=== PATIENT | female | born 1935 | race Caucasian/White ===

== ENCOUNTER 2017-01-06 14:19 | Emergency (ER) | payer OTHER ==
[~2017-01-06] VITALS: Ht 149.9 cm; Wt 44.0 kg
[2017-01-06 14:48] VITALS: BP_SYST 120
--- NOTE | 2017-01-06 14:48 | NUR ---
Placed in room 05. Placed on telemetry monitor, blood pressure machine and pulse oximeter. To gown for exam. Side rails up.
--- NOTE | 2017-01-06 15:00 | NUR ---
Dr. Workman at bedside examining the pt.
--- NOTE | 2017-01-06 15:10 | NUR ---
Pt. presented to ER BIB her daughter for increased fatigue for last two days, states that "pt./ the mother has been saying she is fine however she gets tired very easy" denies chest pain c/o getting SOB with activity, skin pink and warm to touch, denies SOB at the moment O2 sat 100% on room air, denies CP, clear speech follows commands
--- NOTE | 2017-01-06 15:20 | NUR ---
# 20 gauge angiocath placed to lac. Use of asceptic technique. Opsite placed over site. Blood return noted. Blood for lab drawn from site. Flushed with 10 cc of normal saline. No evidence of infiltration noted. Patient tolerated well.
--- NOTE | 2017-01-06 15:20 | NUR ---
X Ray at bedside
[2017-01-06 15:38] LABS: BASOPHILS % (AUTO) 0.4 % (0.0-2.0); EOSINOPHILS % (AUTO) 0.5 % (0.0-4.0); HEMATOCRIT 37.1 % (36-48); HEMOGLOBIN 12.1 g/dL (12.0-16.0); LYMPHOCYTES # (AUTO) 1.4 K/uL (1.0-5.5); LYMPHOCYTES % (AUTO) 23.8 % (20.5-51.5); MEAN CORPUSCULAR HEMOGLOBIN 29 pg (27-31); MEAN CORPUSCULAR HGB CONC 33 % (32-36); MEAN CORPUSCULAR VOLUME 89 fL (79.0-98.0); MONOCYTES # (AUTO) 0.7 K/uL (0.0-1.0); MONOCYTES % (AUTO) 12.2 % (1.7-9.3); NEUTROPHILS # (AUTO) 3.8 K/uL (1.8-7.7); NEUTROPHILS % (AUTO) 63.1 % (40.0-70.0); PLATELET COUNT (AUTO) 274 K/uL (130-430); RED BLOOD CELL COUNT(AUTO) 4.18 MIL/uL (4.2-6.2); RED CELL DISTRIBUTION WIDTH 13.8 % (9.0-15.0); WHITE BLOOD COUNT (AUTO) 5.9 K/uL (4.8-10.8)
[2017-01-06 15:43] LABS: PROTHROMBIN TIME 10.5 SECS (9.5-12.5)
[2017-01-06 16:01] LABS: ANION GAP 5 (5-15); CALCIUM 9.3 mg/dL (8.4-11.0); CHLORIDE 101 mmol/L (98-107); CREATININE 1.16 mg/dL (0.55-1.30); GLUCOSE 101 mg/dL (70-99); POTASSIUM 4.1 mmol/L (3.5-5.1); SODIUM SERUM 136 mmol/L (136-145); UREA NITROGEN, BLOOD 23 mg/dL (8-21)
[2017-01-06 16:06] LABS: ALANINE AMINOTRANSFERASE 22 U/L (12-78); ALBUMIN 3.4 g/dL (3.4-4.8); ASPARTATE AMINOTRANSFERASE 16 U/L (10-37); CREATINE KINASE, TOTAL 28 U/L (26-192); TOTAL BILIRUBIN 0.4 mg/dL (0.0-1.0); TOTAL PROTEIN, SERUM 7.3 g/dL (6.4-8.3)
--- NOTE | 2017-01-06 16:15 | NUR ---
Pt. to receive one litre fluid before discharge as per MD Dr. Workman, orders received
[2017-01-06] MEDS ORDERED: NACL 0.9% 1,000 ML IV ONE (16:30)
[2017-01-06 17:30] VITALS: BP_SYST 119
--- NOTE | 2017-01-06 17:30 | NUR ---
Patient given written and verbal discharge instructions and verbalizes understanding. ER MD dR. Marquez discussed with patient the results and treatment provided. Patient in stable condition. ID arm band removed. IV catheter removed intact and dressing applied, no active bleeding.NO NO Rx given. Patient educated on pain management and to follow up with PMD. Pain Scale 0/10 Opportunity for questions provided and answered.
== END 2017-01-06 17:32 | disposition home or self-care (01) ==
LOC: SED 14:19
DX: I48.91 Unspecified atrial fibrillation (principal); E86.0 Dehydration
CPT/HCPCS: 36415; 71010; 80053; 82550; 83880; 84484; 85025; 85610; 85730; 93005; 96360; 99285; J7030; J7040